=== PATIENT | female | born 1970 | race Two or more races ===

== ENCOUNTER 2016-04-02 16:56 | Emergency (ER) | payer OTHER ==
[~2016-04-02] VITALS: Wt 104.0 kg
[~2016-04-02 16:56] MED LIST: CIPR500T4 PO; IBUP-1542 PO
[2016-04-02] MEDS ORDERED: KETOROLAC 15 MG INJ IV STA (19:28)
[2016-04-02] MEDS ORDERED: ASPI-664 PO (19:32)
--- NOTE | 2016-04-02 19:51 | ERD ---
ER Documentation Chief Complaint Date/Time DATE: 04/02/16 TIME: 19:49 Chief Complaint mid chest pressure and l. breast swelling HPI Very pleasant 46-year-old female. Neuro Ophthalmologist use. The patient describes 2 weeks of chest pain pressure and sharpness. She states that the pain is central and left-sided that is worse with rotational movement and worse to touch of the skin. She feels that it is inflamed. She denies any pleuritic pain, no exertional symptoms no shortness of breath and diaphoresis no nausea. She states that she went to her primary care physician today who sent her to the emergency room. No recent travel or immobilization. No family history of early cardiac disease sudden or heart attack. ROS All systems reviewed and are negative except as per history of present illness. Medications Home Meds Active Scripts Naproxen* (Naprosyn*) 500 Mg Tablet, 500 MG PO BID Y for PAIN AND/OR INFLAMMATION, #20 TAB Prov:ARIELLE ANDRES MD 04/02/16 Reported Medications Aspirin* (Aspirin* EC) 81 Mg Tablet.dr, 81 MG PO DAILY, TAB 04/02/16 Discontinued Scripts Ibuprofen* (Motrin*) 600 Mg Tab, 600 MG PO Q6H Y for PAIN AND OR ELEVATED TEMP, #30 Prov:DIOMEDES CORONA NP 10/06/14 Ciprofloxacin Hcl* (Ciprofloxacin Hcl*) 500 Mg Tablet, 500 MG PO BID for 10 Days , TAB Prov:DIOMEDES CORONA NP 10/06/14 Allergies Allergies: Coded Allergies: No Known Allergy (Unverified , 04/02/16) PMhx/Soc History of Surgery: Yes (tubal ligation ) Anesthesia Reaction: No Hx Neurological Disorder: No Hx Respiratory Disorders: No Hx Cardiac Disorders: No Hx Psychiatric Problems: No Hx Miscellaneous Medical Probl: Yes (hypothyroid ) Hx Alcohol Use: No Hx Substance Use: No Hx Tobacco Use: No Smoking Status: Never smoker FmHx Family History: No coronary disease, No diabetes Physical Exam Vitals Vital Signs Date Time Temp Pulse Resp B/P Pulse Ox O2 Delivery O2 Flow Rate FiO2 04/02/16 16:58 97.4 81 20 146/81 100 Physical Exam General: Well developed, well nourished, no acute distress Head: Normocephalic, atraumatic. Eyes: Pupils equally reactive, EOM intact ENT: Moist mucous membranes Neck: Supple, no lymphadenopathy Respiratory: Lungs clear bilaterally, no distress Cardiovascular: RRR, no murmurs, rubs, or gallops, reproducible soft tissue tenderness along the anterior chest at the sternal costal margin on the left side Abdominal: Soft, non-tender, non-distended, no peritoneal signs : Deferred MSK: No edema, no unilateral swelling, 5/5 strength Neurologic: Alert and oriented, moving all extremities, normal speech, no focal weakness, no cerebellar signs Skin: No rash Psych: Normal mood Result Diagram: 04/02/16201404/02/162014 Results 24 hrs Laboratory Tests Test 04/02/16 20:15 Anion Gap 15 Blood Urea Nitrogen 19mg/dl Calcium Level 9.3mg/dl Carbon Dioxide Level 29mmol/L Chloride Level 104mmol/L Clumped Platelets 1+ Creatinine 0.99mg/dl Eosinophils # 0.110^3/ul Eosinophils % 2.0% Glucose Level 84mg/dl Hematocrit 42.6% Hemoglobin 14.5g/dl Lymphocytes # 1.310^3/ul Lymphocytes % 21.0% Mean Corpuscular Hemoglobin 30.8pg Mean Corpuscular Hemoglobin Concent 34.0g/dl Mean Corpuscular Volume 90.7fl Mean Platelet Volume 9.7fl Monocytes # 0.310^3/ul Monocytes % 5.0% Neutrophils # 4.310^3/ul Neutrophils % 72.0% Nucleated Red Blood Cells # 10^3/ul Platelet Count 10302^3/UL Platelet Estimate PLT APPEAR ADEQUATE Potassium Level 4.1mmol/L Red Blood Count 4.7010^6/ul Red Cell Distribution Width 12.8% Serum HCG, Qualitative NEGATIVE Sodium Level 144mmol/L Troponin I < 0.012ng/ml White Blood Count 6.010^3/ul Current Medications Medications (Trade) Dose Ordered Sig/Lalito Route PRN Reason Start Time Stop Time Status Last Admin Dose Admin Ketorolac Tromethamine (Toradol) 15 mg ONCE STAT IV 04/02/16 19:28 04/02/16 19:30 DC 04/02/16 20:42 Procedures/MDM EKG, MONITORS, & DIAGNOSTIC IMAGING: EKG: I reviewed and interpreted a 12-lead EKG. Rhythm: Normal sinus rhythm Ectopy: None Intervals: No abnormalities ST segments: No elevations or depressions T waves: No contiguous inversions Chest x-ray: I reviewed and interpreted a 1 view of the chest Mediastinum: No enlargement Cardiac silhouette: No cardiomegaly Airspace: Clear lung crisostomo bilaterally without evidence of pneumothorax Bones: No evidence of fracture LAB INTERPRETATION: Negative troponin MEDICAL DECISION MAKING: The patient's history, physical exam and clinical presentation is concerning for likely musculoskeletal etiology such as costochondritis given very reproducible symptoms and rotational movement. The patient meets the PERC RULE out criteria. Thus, less than 2% risk of pulmonary embolism with better alternative diagnosis. No indication for d- dimer or CT pulmonary angiogram at this time. I do not believe this is consistent with cardiac etiology. The patient has no significant risk factors. She has no exertional symptoms she has reproducible symptoms and symptoms been going on for 2 weeks. Based on the patient's clinical exam and history and risk factors, I have a much lower clinical concern for pulmonary embolism, acute aortic dissection, pneumothorax, pneumonia, cardiac tamponade HEART Score: 1 MACE Rate: Less than 1.7% Shared Decision Making: We had a conversation regarding risk stratification, MACE rate, and the risks, benefits, alternatives of disposition planning options. Disposition planning: I do not think that the patient requires serial enzymes given 2 weeks of constant symptoms, the patient needs very low risk profile. I did discuss inpatient versus outpatient management but I feel strongly that outpatient management is reasonable. The patient agrees. The risks of false positive stress testing outweigh the benefits at this time. ER COURSE: The patient was given Toradol with improved symptoms. The patient's troponin is negative. Her laboratory testing is negative and x-rays negative. The patient is safe for discharge. I kept the patient and/or family informed of laboratory and diagnostic imaging results throughout the emergency room course. DISPOSITION PLAN: We discussed follow up with the patient's primary care doctor within 24 to 48 hours as needed. We also discussed return to the emergency room for worsening symptoms or worsening condition. The patient is to return for any exertional symptoms or worsening symptoms. Outpatient follow-up is appropriate Discharge Medications: Naprosyn Departure Diagnosis: Primary Impression: Chest wall pain Additional Impression: Atypical chest pain Condition: Stable ARIELLE ANDRES MD Apr 02, 2016 19:51
--- NOTE | 2016-04-02 19:55 | RADRPT ---
PROCEDURE: XR Chest. CLINICAL INDICATION: Chest pain. TECHNIQUE: Single AP portable chest COMPARISON: None. FINDINGS: The cardiomediastinal silhouette is within normal limits of size ..The lungs are clear without pleur al effusion or focal consolidation. No pneumothorax. The osseous structures and soft tissues are unr emarkable. IMPRESSION: 1. No evidence for active cardiopulmonary disease. RPTAT:AAJJ Eitan Martínez Physician Date Time Electronically viewed and signed by Eitan Martínez Physician on 04/02/2016 19:55 NATALIE/
[2016-04-02 20:47] LABS: HEMATOCRIT 42.6 % (37.0-47.0); HEMOGLOBIN 14.5 g/dl (12.0-16.0); MEAN CORPUSCULAR HEMOGLOBIN 30.8 pg (29.0-33.0); MEAN CORPUSCULAR VOLUME 90.7 fl (82.0-101.0); MEAN PLATELET VOLUME 9.7 fl (7.4-10.4); PLATELET COUNT 188 10^3/UL (140-440); RED CELL DISTRIBUTION WIDTH 12.8 % (11.5-14.5)
[2016-04-02 20:50] LABS: CONDITION 1; LH ANALYZER COMMENTS 1; SUSPECT 1; UNCORRECTED WBC 10.6 10^3/ul (4.8-10.8)
[2016-04-02 21:25] LABS: CHLORIDE 104 mmol/L (97-110); POTASSIUM 4.1 mmol/L (3.5-5.1); SODIUM 144 mmol/L (135-144)
[2016-04-02 21:27] LABS: CREATININE 0.99 mg/dl (0.44-1.00)
[2016-04-02 21:28] LABS: ANION GAP 15 (8-16); BLOOD UREA NITROGEN 19 mg/dl (7-20); CALCIUM 9.3 mg/dl (8.4-10.2); CARBON DIOXIDE 29 mmol/L (21-31); GLUCOSE 84 mg/dl (70-220)
[2016-04-02 21:41] LABS: TROPONIN-I < 0.012 ng/ml (0.00-0.12)
[2016-04-02 22:12] LABS: EOSINOPHILS # 0.1 10^3/ul (0.0-0.5); LYMPHOCYTES # 1.3 10^3/ul (0.8-2.9); MONOCYTE # 0.3 10^3/ul (0.3-0.9); NEUTROPHIL # 4.3 10^3/ul (1.6-7.5)
[2016-04-02 22:13] LABS: PLATELET ESTIMATE PLT APPEAR ADEQUATE; PLATELETS CLUMPS 1+
[2016-04-02] MEDS ORDERED: NAPR-260 PO (22:36)
[2016-04-02 22:57] VITALS: BP 112/85; PULSE 57; RESP 16
== END 2016-04-02 22:57 | disposition home or self-care (01) ==
LOC: E/R 16:56
DX: R07.89 Other chest pain (principal); E03.9 Hypothyroidism, unspecified; R40.2142 Coma scale, eyes open, spontaneous, at arrival to emergency department; R40.2362 Coma scale, best motor response, obeys commands, at arrival to emergency department; R40.2252 Coma scale, best verbal response, oriented, at arrival to emergency department; Z79.82 Long term (current) use of aspirin
CPT/HCPCS: 36415; 71010; 80048; 84484; 84703; 85025; 93005; 96374; J1885; Z7502

== ENCOUNTER 2016-07-05 11:17 | Emergency (ER) | payer OTHER ==
[~2016-07-05] VITALS: Wt 106.5 kg
[~2016-07-05 11:17] MED LIST changes: +ASPI-664 PO; -CIPR500T4 PO; -IBUP-1542 PO; +NAPR-260 PO
[2016-07-05] MEDS ORDERED: SOD CHLORIDE 0.9% 1,000 ML IV STA (12:55)
[2016-07-05] MEDS ORDERED: METOCLOPRAMIDE 10 MG INJ IV STA (12:55)
[2016-07-05] MEDS ORDERED: DIPHENHYDRAMINE 50 MG INJ IV STA (12:55)
[2016-07-05] MEDS ORDERED: KETOROLAC 30 MG INJ IV STA (12:55)
[2016-07-05 13:21] LABS: ADD SCAN DIFF NO
[2016-07-05 13:30] LABS: BASOPHILS % 0.3 % (0.0-2.0); EOSINOPHILS # 0.1 10^3/ul (0.0-0.5); EOSINOPHILS % 1.9 % (0.0-7.0); HEMOGLOBIN 13.5 g/dl (12.0-16.0); LYMPHOCYTES # 1.3 10^3/ul (0.8-2.9); LYMPHOCYTES % 17.8 % (15.0-51.0); MEAN CORPUSCULAR HEMOGLOBIN 30.3 pg (29.0-33.0); MEAN CORPUSCULAR HGB CONC 32.1 g/dl (32.0-37.0); MEAN CORPUSCULAR VOLUME 94.2 fl (82.0-101.0); MEAN PLATELET VOLUME 11.1 fl (7.4-10.4); MONOCYTE # 0.5 10^3/ul (0.3-0.9); MONOCYTES % 7.3 % (0.0-11.0); NEUTROPHIL # 5.4 10^3/ul (1.6-7.5); NEUTROPHILS % 72.6 % (39.0-77.0); PLATELET COUNT 227 10^3/UL (140-415); RED BLOOD COUNT 4.46 10^6/ul (4.20-5.40); RED CELL DISTRIBUTION WIDTH 11.9 % (11.5-14.5); WHITE BLOOD COUNT 7.4 10^3/ul (4.8-10.8)
[2016-07-05 13:31] LABS: INR 1.11; PROTIME 14.3 Sec (12.2-14.2); PT RATIO 1.1
[2016-07-05 13:32] LABS: PARTIAL THROMBOPLASTIN TIME 26.3 Sec (25.0-35.0)
[2016-07-05 13:36] LABS: CREATININE 0.61 mg/dl (0.44-1.00)
[2016-07-05 13:37] LABS: CALCIUM 9.3 mg/dl (8.4-10.2)
--- NOTE | 2016-07-05 14:33 | RADRPT ---
PROCEDURE: CT brain without IV contrast. CLINICAL INDICATION: Headache. TECHNIQUE: CT examination of the brain was performed on a 64-slice multidetector scanner. The pat ient was examined without IV contrast. Sagittal and coronal reformatted images were made. The imag es were reviewed on a PACS workstation. Total radiation dose: Total CTDIvol: 45 mGy. Total DLP: 78 mGy-cm. One or more of the following d ose reduction techniques were used: automated exposure control, adjustment of the mA and/or kV accor ding to patient size, or use of iterative reconstruction technique COMPARISON: None available. 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 The ventricles and cerebral sulci are normal in size and morphology. The cheema/white matter differen tiation is well preserved. There is no other abnormal intra-axial high, low density lesion, suggest ing tumor, infarct , bleeding, av malformation or inflammatory mass. No subdural or epidural hematoma. The visualized paranasal sinuses and mastoid air cells are clear. The orbits are unremarkable. The calvarium is intact. No scalp abnormalities are seen. IMPRESSION: 1. 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 Othe rwise, unremarkable CT brain without IV contrast. RPTAT: GG .Sean Reinoso MD, MD Date Time Electronically viewed and signed by .Sean Reinoso MD, on 07/05/2016 14:33 .Y/
[2016-07-05] MEDS ORDERED: EXCED PO (14:37)
--- NOTE | 2016-07-05 14:43 | ERD ---
ER Documentation Chief Complaint Date/Time DATE: 07/05/16 TIME: 14:40 Chief Complaint kulkarni x 8 days HPI This is a 46-year-old female that presents to the ER with recurrent headaches for the last 6 years. He said over the last week she has had a severe headache that is located in the frontal part of her head and radiates back. Patient has been taking ibuprofen however it has not worked. Patient states that pain is constant and throbbing in quality. She denies any photophobia. She denies any vision loss or vision changes. She does admit to mild nausea however denies vomiting. She denies any trauma to the head or loss of consciousness. She denies any dizziness. ROS 12 point review of systems was done, all negative except per HPI. Medications Home Meds Active Scripts Acetaminophen/Aspirin/Caffeine* (Excedrin*) 1 Tab Tab, 2 TAB PO QHS for 3 Days, TAB Prov:EMRE HUFF 07/05/16 Naproxen* (Naprosyn*) 500 Mg Tablet, 500 MG PO BID Y for PAIN AND/OR INFLAMMATION, #20 TAB Prov:ARIELLE ANDRES MD 04/02/16 Reported Medications Aspirin* (Aspirin* EC) 81 Mg Tablet.dr, 81 MG PO DAILY, TAB 04/02/16 Allergies Allergies: Coded Allergies: No Known Allergy (Unverified , 07/05/16) PMhx/Soc History of Surgery: Yes (tubal ligation ) Anesthesia Reaction: No Hx Neurological Disorder: No Hx Respiratory Disorders: No Hx Cardiac Disorders: No Hx Psychiatric Problems: No Hx Miscellaneous Medical Probl: Yes (hypothyroid ) Hx Alcohol Use: No Hx Substance Use: No Hx Tobacco Use: No Smoking Status: Never smoker Physical Exam Vitals Vital Signs Date Time Temp Pulse Resp B/P Pulse Ox O2 Delivery O2 Flow Rate FiO2 07/05/16 11:20 98.1 75 18 125/71 99 Physical Exam GENERAL: The patient is well developed and appropriate for usual state of health , in no apparent distress. HEENT: Atraumatic. Conjunctivae are pink. Pupils equal, round, and reactive to light. Extraocular muscles are grossly intact. Bilateral tympanic membranes are clear with no evidence of erythema, bulging or perforation. No sinus tenderness. NECK: C-spine is soft and supple. There is no cervical lymphadenopathy. CHEST: Clear to auscultation bilaterally. There are no rales, wheezes or rhonchi. HEART: Regular rate and rhythm. No murmurs, clicks, rubs or gallops. EXTREMITIES: Equal pulses bilaterally. There is no peripheral clubbing, cyanosis or edema. No focal swelling or erythema. Full range of motion. Grossly neurovascularly intact. NEURO: Alert and oriented. Cranial nerves II through XII are intact. Motor strength in all 4 extremities with 5/5 strength. Sensation grossly intact. Normal speech and gait. Negative Rhomberg. +2 DTRs. SKIN: There is no apparent rash or petechia. The skin is warm and dry. Result Diagram: 07/05/16 1304 07/05/16 1304 Results 24 hrs Laboratory Tests Test 07/05/16 13:04 White Blood Count 7.410^3/ul Red Blood Count 4.4610^6/ul Hemoglobin 13.5g/dl Hematocrit 42.0% Mean Corpuscular Volume 94.2fl Mean Corpuscular Hemoglobin 30.3pg Mean Corpuscular Hemoglobin Concent 32.1g/dl Red Cell Distribution Width 11.9% Platelet Count 99872^3/UL Mean Platelet Volume 11.1fl Neutrophils % 72.6% Lymphocytes % 17.8% Monocytes % 7.3% Eosinophils % 1.9% Basophils % 0.3% Nucleated Red Blood Cells % 0.0/100WBC Neutrophils # 5.410^3/ul Lymphocytes # 1.310^3/ul Monocytes # 0.510^3/ul Eosinophils # 0.110^3/ul Basophils # 0.010^3/ul Nucleated Red Blood Cells # 0.010^3/ul Prothrombin Time 14.3Sec Prothrombin Time Ratio 1.1 INR International Normalized Ratio 1.11 Activated Partial Thromboplast Time 26.3Sec Sodium Level 142mmol/L Potassium Level 4.0mmol/L Chloride Level 104mmol/L Carbon Dioxide Level 28mmol/L Anion Gap 14 Blood Urea Nitrogen 14mg/dl Creatinine 0.61mg/dl Glucose Level 91mg/dl Calcium Level 9.3mg/dl Current Medications Medications (Trade) Dose Ordered Sig/Lalito Route PRN Reason Start Time Stop Time Status Last Admin Dose Admin Sodium Chloride (NS) 1,000 ml @ 1,000 mls/hr Q1H STAT IV 07/05/16 12:55 07/05/16 13:54 DC 07/05/16 13:20 Metoclopramide HCl (Reglan) 10 mg ONCE STAT IV 07/05/16 12:55 07/05/16 12:56 DC 07/05/16 13:20 Ketorolac Tromethamine (Toradol) 30 mg ONCE STAT IV 07/05/16 12:55 07/05/16 12:56 DC 07/05/16 13:20 Diphenhydramine HCl (Benadryl) 25 mg ONCE STAT IV 07/05/16 12:55 07/05/16 12:56 DC 07/05/16 13:20 Procedures/MDM Differential Diagnosis includes but is not limited to; tension headache, migraine headache, cluster headache, sinus headache, nonspecific febrile headache, trigeminal neurologia, subdural hematoma, subarachnoid bleeding, meningitis, encephalitis. Patient is neurologically intact with no focal neurological deficits. Patient may be experiencing migraine headaches, this is acute on chronic pain as it has been going on for the last 6 years. Patient is afebrile and well-appearing, I doubt meningitis or encephalitis. Patient will be sent home with Brendon. She is to follow-up with her primary care doctor within 1-2 days return to ER sooner if symptoms worsen. My medical decision making was shared with the patient she understands and agrees with plan. Departure Diagnosis: Primary Impression: Headache Condition: Stable Patient Instructions: Self-Care for Headaches Additional Instructions: Llame al doctor ALVARO y airam margi LASHAY PARA DENTRO DE 1-2 GOVEA.Dgale a la secretaria que nosotros le instruimos hacer esta lashay.Avise o llame si balderrama condicin se empeora antes de la lashay. Regresa aqui si peor o no mejor. EMRE HUFF July 05, 2016 14:43
== END 2016-07-05 15:54 | disposition home or self-care (01) ==
LOC: FTE 11:17
DX: R51 Headache (principal); E03.9 Hypothyroidism, unspecified; Z79.82 Long term (current) use of aspirin
CPT/HCPCS: 36415; 70450; 80048; 85025; 85610; 85730; 96374; 96375; J1200; J1885; J2765; J7030; Z7502